=== PATIENT | female | born 1960 | race Caucasian/White ===

== ENCOUNTER 2017-08-30 18:56 | Emergency (ER) | payer OTHER ==
[~2017-08-30] VITALS: Ht 165.1 cm; Wt 127.0 kg
[2017-08-30 18:58] VITALS: BP 118/96
--- NOTE | 2017-08-30 19:50 | NUR ---
PT MILLICENT BLS. TAKEN TO BED 5
--- NOTE | 2017-08-30 19:55 | NUR ---
PATIENT IS A 56 Y/O FEMALE BIB [facility] WHO PRESENTS TO THE ED C/O OF R LEG PAIN. PT STATES, "I WAS PICKING FRUIT WHEN I FELL OFF THE LADDER." PT REPORTS 10/10 THROBBING PAIN THAT RADIATES UP THE RIGHT LEG. NOTED SWELLING AT THE RIGHT ANKLE. PT DENIES SOB, N/V/D. PT REPORTS H/O HYPERLIPIDEMIA, WHITE COAT SYNDROME AND GERD. PT AAOX4, RR EVEN AND UNLABORED. SKIN WARM, DRY AND COOL. PT REPOSITIONED FOR COMFORT, BED IN LOWEST POSITION. ER MD DR. LANGE NOTIFIED. WILL CONTINUE TO MONITOR.
--- NOTE | 2017-08-30 20:00 | NUR ---
PATIENT REFUSED TO GIVE URINE. PT STATES "I'M IN TOO MUCH PAIN, I'M FAR FROM BEING FROM BEING , AND I'M A LESBIAN."
--- NOTE | 2017-08-30 20:27 | NUR ---
Dr. Prado evaluating patient at bedside.
[2017-08-30] MEDS ORDERED: HYDROmorphone PFS 2 MG/ML SYR IM ONE (20:30)
[2017-08-30] MEDS ORDERED: diphenhydrAMINE 50 MG/ML VIAL IM ONE (20:30)
[2017-08-30] MEDS ORDERED: KETOROLAC 60 MG/2 ML VIAL IM ONE (20:30)
--- NOTE | 2017-08-30 21:03 | NUR ---
X-Ray at bedside.
[2017-08-31] VITALS: BP 161/79
--- NOTE | 2017-08-31 | NUR ---
Patient to be transferred to [facility]. Is being transferred due to HIGHER LEVEL OF CARE. Receiving facility has accepting physician and available space. ER physician has signed transfer form. Patient or responsible libertarian has agreed to transfer and signed form. Patient belongings inventoried and will be sent with patient. Copy of nursing notes, lab reports, EKG, Physicians Orders and X-rays to be sent with patient. Report called to CHELA CHOPRA at receiving facility. [id number] ambulance service has been called for transfer. ETA is NOW.
--- NOTE | 2017-08-31 00:10 | NUR ---
PT TAKEN BY [facility] TRANSPORT TO [facility]
--- NOTE | 2017-09-07 11:04 | NUR ---
RECEIVED A CALL FROM RAFI FROM [facility] REQUESTING INFORMATION. FAXED ER DOCTOR'S REPORT AND NOTES ABOUT TRANSFER TO HER AT [phone] PHONE [phone]
== END 2017-08-31 00:10 | disposition short-term general hospital (02) ==
LOC: MED 18:56
DX: S82.431A Displaced oblique fracture of shaft of right fibula, initial encounter for closed fracture (principal); S82.891A Other fracture of right lower leg, initial encounter for closed fracture; S82.141A Displaced bicondylar fracture of right tibia, initial encounter for closed fracture; S93.04XA Dislocation of right ankle joint, initial encounter; E78.5 Hyperlipidemia, unspecified; K21.9 Gastro-esophageal reflux disease without esophagitis; W11.XXXA Fall on and from ladder, initial encounter; Y93.89 Activity, other specified; Y92.89 Other specified places as the place of occurrence of the external cause; Y99.8 Other external cause status
CPT/HCPCS: 29505; 73562; 73610; 96372; 99285; J1170; J1200; J1885; Q0092

== ENCOUNTER 2023-11-16 09:41 | Emergency (ER) | payer OTHER ==
[~2023-11-16] VITALS: Ht 165.1 cm; Wt 126.1 kg
[2023-11-16 09:56] VITALS: BP 166/109; PULSE 90; RESP 14; TEMP 98.3; O2SAT 96
[2023-11-16] MEDS ORDERED: NACL 0.9% 1,000 ML IV ONE (11:30)
[2023-11-16 12:04] LABS: BASOPHILS % (AUTO) 0.2 % (0.0-2.0); EOSINOPHILS # (AUTO) 0.2 K/uL (0-0.4); EOSINOPHILS % (AUTO) 2.2 % (0.0-4.0); HEMATOCRIT 40.2 % (36-48); HEMOGLOBIN 14.3 g/dL (12.0-16.0); LYMPHOCYTES # (AUTO) 1.8 K/uL (2.5-16.5); LYMPHOCYTES % (AUTO) 18.8 % (20.5-51.1); MEAN CORPUSCULAR HEMOGLOBIN 33 pg (27-31); MEAN CORPUSCULAR HGB CONC 36 g/dL (33-37); MONOCYTES # (AUTO) 0.7 K/uL (0.8-1.0); MONOCYTES % (AUTO) 6.7 % (1.7-9.3); NEUTROPHILS # (AUTO) 7.1 K/uL (1.8-7.7); NEUTROPHILS % (AUTO) 72.1 % (42.2-75.2); PLATELET COUNT (AUTO) 164 K/uL (140-450); RED BLOOD CELL COUNT(AUTO) 4.37 MIL/uL (4.20-5.40); RED CELL DISTRIBUTION WIDTH 12.7 % (11.6-13.7); WHITE BLOOD COUNT (AUTO) 9.8 K/uL (4.8-10.8)
[2023-11-16 12:21] LABS: ANION GAP 16.5 (8-16); CALCIUM 10.6 mg/dL (8.5-10.1); CARBON DIOXIDE 24.8 mmol/L (21-32); CREATININE 0.9 mg/dL (0.6-1.3); POTASSIUM 4.3 mmol/L (3.5-5.1)
[2023-11-16 14:45] VITALS: BP 143/76; PULSE 82; RESP 13; TEMP 98.3; O2SAT 97
== END 2023-11-16 14:45 | disposition home or self-care (01) ==
LOC: MED 09:41
DX: E11.9 Type 2 diabetes mellitus without complications (principal); R20.2 Paresthesia of skin; K21.9 Gastro-esophageal reflux disease without esophagitis; I10 Essential (primary) hypertension
CPT/HCPCS: 36415; 80048; 81002; 82948; 84484; 85025; 93005; 96360; 99284; J7030